=== PATIENT | male | born 1980 | race Caucasian/White ===

== ENCOUNTER 2018-10-05 20:31 | Emergency (ER) | payer MEDICAID ==
[2018-10-05 20:39] VITALS: BP 147/88; PULSE 61; RESP 18; TEMP 97.7
[2018-10-05] MEDS ORDERED: PROPARACAINE 0.5% OPHTH DROPS 15 ML BTL ONE (20:56)
[2018-10-05] MEDS ORDERED: PROPARACAINE 0.5% OPHTH DROPS 15 ML BTL LEFT EYE STA (21:04)
[2018-10-05] MEDS ORDERED: IBUPROFEN 600 MG TAB PO STA (21:12)
--- NOTE | 2018-10-05 21:14 | ED ---
Eye Problem HPI - General Chief complaint: Eye Problems Stated complaint: Eye injury Time Seen by Provider: 10/05/18 20:41 Source: patient Mode of arrival: ambulatory Limitations: no limitations - History of Present Illness Initial comments: Patient is a 38-year-old male presents emergency Department with complaints of left eye pain 2 hours. Patient states he was snuggling/playing with his dog when he thinks its whisker poked him in the eye. Ever since then he's been having clear discharge from the eye and some mild swelling. She has slight phot ophobia. Patient denies any changes in his vision. No other complaints at this time. - Related Data Previous Rx's Medication Instructions Recorded Erythromycin Ophth Oint [Romycin 1 applic LEFT EYE QID 5 Days gm 10/05/18 Ophth Oint] Allergies Allergy/AdvReac Type Severity Reaction Status Date / Time No Known Allergies Allergy Verified 10/05/18 20:39 Review of Systems ROS Statement: Those systems with pertinent positive or pertinent negative responses have been documented in the HPI. ROS Other: All systems not noted in ROS Statement are negative. Past Medical History Past Medical History: No Reported History History of Any Multi-Drug Resistant Organisms: None Reported Past Surgical History: No Surgical Hx Reported Past Psychological History: No Psychological Hx Reported Smoking Status: Never smoker Past Alcohol Use History: Occasional Past Drug Use History: None Reported General Exam - General Exam Comments Initial Comments: GENERAL: Well-appearing, well-nourished and in no acute distress. HEAD: Atraumatic, normocephalic. EYES: Pupils equal round and reactive to light, extraocular movements intact, sclera anicteric, conjunctiva are normal. Left eye has mild edema, clear discharge. There was a small abrasion seen with the fluorescein stain at the 3 o'clock position on the left eye. ENT: TMs normal, nares patent, oropharynx clear without exudates. Moist mucous membranes. NECK: Normal range of motion, supple without lymphadenopathy or JVD. LUNGS: Breath sounds clear to auscultation bilaterally and equal. No wheezes rales or rhonchi. HEART: Regular rate and rhythm without murmurs, rubs or gallops. ABDOMEN: Soft, nontender, normoactive bowel sounds. No guarding, no rebound. No masses appreciated. : Deferred EXTREMITIES: Normal range of motion, no pitting or edema. No clubbing or cyanosis. NEUROLOGICAL: Cranial nerves II through XII grossly intact. Normal speech, normal gait. PSYCH: Normal mood, normal affect. SKIN: Warm, Dry, normal turgor, no rashes or lesions noted. Limitations: no limitations Course Vital Signs 10/05/18 20:36 Temperature 97.7 F Pulse Rate 61 Respiratory 18 Rate Blood Pressure 147/88 O2 Sat by Pulse 97 Oximetry Medical Decision Making - Medical Decision Making 2 hours. Patient states he thinks his dogs whisker postman the eye. Patient has clear discharge coming from the left eye along with some mild swelling. Small abrasion was seen and 3 o'clock position of the left eye with forcing stain. Patient was given antibiotic eye ointment to use for 7 days. Patient will follow up with ophthalmology if symptoms continue or worsen. Patient will be discharged home. Patient is okay with this plan. Disposition Clinical Impression: Injury of conjunctiva and corneal abrasion of left eye w/o FB Disposition: HOME SELF-CARE Condition: Stable Instructions (If sedation given, give patient instructions): Eye Foreign Body (ED), Abrasion (ED) Additional Instructions: Please return to the Emergency Department if symptoms worsen or any other concerns. Follow-up with ophthalmology if symptoms continue. Prescriptions: Erythromycin Ophth Oint [Romycin Ophth Oint] 1 applic LEFT EYE QID 5 Days gm Is patient prescribed a controlled substance at d/c from ED?: No Referrals: Marti Espinosa III, MD [Primary Care Provider] - 1-2 days
== END 2018-10-05 21:45 | disposition home or self-care (01) ==
LOC: EC 20:31
DX: S05.02XA Injury of conjunctiva and corneal abrasion without foreign body, left eye, initial encounter (principal); Y93.89 Activity, other specified
CPT/HCPCS: 99283